=== PATIENT | female | born 1965 ===

== ENCOUNTER 2020-08-26 05:17 | Day surgery (SDC) | payer OTHER ==
[~2020-08-26 05:17] MED LIST: PANTOPRAZOLE SO40 M2 PO; TYLENOL ARTHRI650 MG PO
[2020-08-26] MEDS ORDERED: PERCOCET 5-3251 EACH PO (08:32)
[2020-08-26] MEDS ORDERED: DERMOPLAST FIRS78 GM TOP (08:32)
[2020-08-26] MEDS ORDERED: RECTICARE30 GM TOP (08:32)
== END 2020-08-26 12:50 | disposition home or self-care (01) ==
LOC: CIR.AMB 05:17
PROVIDERS: ATTEND Surgery
DX: K60.3 Anal fistula (principal); K64.1 Second degree hemorrhoids; Z20.822 Contact with and (suspected) exposure to COVID-19